=== PATIENT | male | born 1950 | race Caucasian/White ===

== ENCOUNTER 2022-03-20 13:00 | Emergency (ER) | payer BC, MEDICARE ==
[~2022-03-20] VITALS: Ht 170.2 cm; Wt 75.7 kg
[2022-03-20] MEDS ORDERED: LIDOCAINE 1%-EPI 1:100,000 20 ML VIAL ONE (13:29)
[2022-03-20] MEDS ORDERED: SILVER NITRATE APPLICATOR STICK EACH TP ONE ×2 (13:38→14:00)
--- NOTE | 2022-03-20 13:54 | NUR ---
MD injected lidocaine at wound site underside of chin. wound cleaned with betadine. MD used silver nitrate stich to help cauterize wound, then placed suture.
[2022-03-20] MEDS ORDERED: LIDOCAINE HCL 1% 20 ML VIAL IJ ONE (14:00)
[2022-03-20] MEDS ORDERED: NEOMY/BACITRA/POLYMYXIN B OINT UD PACKET TP ONE (14:12)
--- NOTE | 2022-03-20 14:30 | NUR ---
Gave pt d/c instructions, pt verbalized understanding.
== END 2022-03-20 14:43 | disposition home or self-care (01) ==
LOC: ER 13:00
DX: L76.21 Postprocedural hemorrhage of skin and subcutaneous tissue following a dermatologic procedure (principal); Z86.711 Personal history of pulmonary embolism; Z79.01 Long term (current) use of anticoagulants; C61 Malignant neoplasm of prostate
CPT/HCPCS: 99282; 12011; J3490; A4663

== ENCOUNTER 2022-06-03 20:52 | Emergency (ER) | payer BC ==
[~2022-06-03] VITALS: Ht 172.7 cm; Wt 79.8 kg
--- NOTE | 2022-06-03 21:04 | NUR ---
Dr. Valles at bedside. MSE in progress.
--- NOTE | 2022-06-03 21:40 | NUR ---
Checked BP per Dr. Valles's order. Results BP 165/ 108, HR 70
[2022-06-03] MEDS ORDERED: CLONIDINE HCL 0.1 MG TABLET ONE (22:04)
[2022-06-03] MEDS ORDERED: CLONIDINE HCL 0.1 MG TABLET PO ONE (22:15)
[2022-06-03] MEDS ORDERED: CLON0.1T PO (22:37)
--- NOTE | 2022-06-03 23:10 | NUR ---
Patient discharged to home in stable condition. A/O x 4. NAD noted. Ambulatory with a steady gait. Written and verbal after care instructions given. Patient verbalizes understanding of instructions. Stressed follow up or return to ER for worsening s/s.
[2022-06-03 23:14] VITALS: BP 147/105
== END 2022-06-03 23:10 | disposition home or self-care (01) ==
LOC: ER 20:52
DX: L98.9 Disorder of the skin and subcutaneous tissue, unspecified (principal); R58 Hemorrhage, not elsewhere classified; C61 Malignant neoplasm of prostate; C79.51 Secondary malignant neoplasm of bone; I10 Essential (primary) hypertension; Z79.899 Other long term (current) drug therapy; Z86.711 Personal history of pulmonary embolism; Z79.01 Long term (current) use of anticoagulants
CPT/HCPCS: A4663